=== PATIENT | female | born 1940 | race Two or more races ===

== ENCOUNTER 2017-10-26 13:44 | Emergency (ER) | payer OTHER ==
[~2017-10-26] VITALS: Ht 157.5 cm; Wt 49.9 kg
[~2017-10-26 13:44] MED LIST: AVALIDE 150-12.1 TA1 PO; AVAPRO75 MG PO; CATAFLAM50 MG PO; CRESTOR5 MG PO; KEFLEX500 MG PO; NORTUSS-EX LIQ118 ML PO; PRELONE15 MG/5 ML PO; ZITHROMAX500 MG PO; ZYNCOF 20-400120 ML PO
[2017-10-26] MEDS ORDERED: ARICEPT10 MG (14:21)
[2017-10-26] MEDS ORDERED: LASIX20 MG (14:21)
[2017-10-26] MEDS ORDERED: LIPITOR40 MG (14:21)
== END 2017-10-26 17:57 | disposition home or self-care (01) ==
LOC: ER 13:44
DX: B34.9 Viral infection, unspecified (principal); J11.1 Influenza due to unidentified influenza virus with other respiratory manifestations

== ENCOUNTER 2019-01-24 09:16 | Emergency (ER) | payer OTHER ==
[~2019-01-24] VITALS: Ht 162.6 cm; Wt 52.2 kg
[~2019-01-24 09:16] MED LIST changes: +ARICEPT10 MG; +LASIX20 MG; +LIPITOR40 MG
[2019-01-24] MEDS ORDERED: AMLODIPINE BESI25 GM (09:25)
== END 2019-01-24 11:15 | disposition home or self-care (01) ==
LOC: ER 09:16
DX: R00.2 Palpitations (principal)

== ENCOUNTER 2022-02-13 15:35 | Emergency (ER) | payer OTHER ==
[~2022-02-13] VITALS: Ht 154.9 cm; Wt 47.6 kg
[~2022-02-13 15:35] MED LIST changes: +AMLODIPINE BESI25 GM
[2022-02-13] MEDS ORDERED: ATACAND32 MG PO (16:26)
[2022-02-13] MEDS ORDERED: ARICEPT10 MG PO (16:27)
[2022-02-13] MEDS ORDERED: LASIX20 MG PO (16:27)
[2022-02-13] MEDS ORDERED: NORVASC5 MG PO (16:28)
[2022-02-13] MEDS ORDERED: ALLERGY RELIEF10 M4 PO (16:29)
[2022-02-13] MEDS ORDERED: MORGIDOX100 MG PO (16:53)
== END 2022-02-13 17:09 | disposition home or self-care (01) ==
LOC: ER 15:35
DX: L03.032 Cellulitis of left toe (principal); I10 Essential (primary) hypertension

== ENCOUNTER 2024-04-19 10:29 | Inpatient (IN) | payer OTHER ==
[~2024-04-19] VITALS: Ht 157.5 cm; Wt 49.9 kg
[~2024-04-19 10:29] MED LIST changes: +ALLERGY RELIEF10 M4 PO; +ARICEPT10 MG PO; +ATACAND32 MG PO; +LASIX20 MG PO; +MORGIDOX100 MG PO; +NORVASC5 MG PO
[2024-04-19] MEDS ORDERED: TRAZODONE HCL50 MG PO (10:46)
--- NOTE | 2024-04-19 10:47 | NUR ---
SE RECIBE PTE FEMENINA DE 83 YRS AMBULANCIA POR ANOREXIA, PTE LLEGA DESDE EL HOGAR CON REFERIDO A EL MICHEAL EVANS. SE LE BLAINE S/V Y SE UBICA EN PIPER . SE MAMTIENENE EN ESPERA DE SER REVALIADA POR EL MARIAM EVANS
[2024-04-19] MEDS ORDERED: SODIUM CHLORIDE 0.45 % 1,000 ML IV SCH (12:00)
[2024-04-19] MEDS ORDERED: METOPROLOL SUCCINATE 25 MG TAB.SR.24H PO SCH (12:17)
[2024-04-19] MEDS ORDERED: CANDESARTAN CILEXETIL 8 MG TAB PO SCH (12:17)
[2024-04-19 15:32] LABS: CHOL HDL RATIO 2.9 (0-5.0)
[2024-04-19 15:51] VITALS: BP 158/86; O2SAT 98
[2024-04-19 22:56] VITALS: BP 179/91; O2SAT 98
[2024-04-20 02:51] VITALS: BP 152/68; O2SAT 96
[2024-04-20 09:41] VITALS: BP 189/18; O2SAT 98
[2024-04-20 09:54] LABS: HEMATOCRIT 33.8 % (36.0-45.00); HEMOGLOBIN 11.4 g/dL (12.0-15.00); MEAN CORPUSCULAR HEMOGLOBIN 28.8 pg (27.00-32.0); MEAN CORPUSCULAR HGB CONC 33.9 g/dl (32.0-36.0); PLATELET COUNT 246 K/uL (150-450); RED BLOOD COUNT 3.98 M/uL (4.00-6.00); RED CELL DISTRIBUTION WIDTH 15.2 % (11.5-14.5)
[2024-04-20 10:06] LABS: ERYTHROCYTE SEDIMENTATION RATE 78 mm/hr
[2024-04-20 10:16] LABS: INR 1.07; PARTIAL THROMBOPLASTIN TIME 32.5 SECONDS (22.0-34.0); PROTHROMBIN TIME 11.6 SECONDS (9.0-11.5)
[2024-04-20 11:11] LABS: ALBUMIN 2.9 gm/dL (3.4-5.0); BILIRUBIN TOTAL 0.81 mg/dL (0.3-1.2); CALCIUM 9.1 mg/dL (8.5-10.1); CREATININE SERUM 0.53 mg/dL (0.55-1.02); GFR 109.64; GLOBULINA 3.6 G/DL (2.4-3.5); PHOSPHOROUS 3.8 mg/dL (2.5-4.9); POTASSIUM 3.96 mEq/L (3.5-5.1); TOTAL PROTEIN 6.5 gm/dL (6.4-8.2)
[2024-04-20 11:13] LABS: C-REACTIVE PROTEIN 2.1 MG/DL (0.00-0.29)
[2024-04-20 19:11] VITALS: BP 130/80; O2SAT 97
[2024-04-20] MEDS ORDERED: NIFEDIPINE 30 MG TAB.SA.OSM PO SCH (19:20)
[2024-04-21 02:05] VITALS: BP 156/88; O2SAT 95
[2024-04-21 08:57] VITALS: BP 190/78
[2024-04-21] MEDS ORDERED: NIFEDIPINE 30 MG TAB.SA.OSM PO SCH (10:00)
[2024-04-21 12:16] LABS: URINE APPEARANCE Cloudy; URINE BILIRRUBIN Negative (NEGATIVE); URINE BLOOD Small; URINE COLOR Dark Yellow; URINE GLUCOSE Negative (NEGATIVE); URINE LEUKOCYTE Moderate; URINE NITRATE Positive
[2024-04-21 12:20] LABS: URINE CAST 2.28 uL (0.0-1.40); URINE EPITHELIAL CELLS 17.7 uL (0.0-38.8); URINE RBC 8.3 uL (0.0-20.8); URINE WBC 1190.2 uL (0.0-23.2)
[2024-04-21 12:43] LABS: URINE BACTERIA > 9821.5 uL (0.0-1933); URINE KETONE 40 (NEGATIVE); URINE MUCUS MODERATE; URINE PROTEIN 100 (NEGATIVE)
[2024-04-21 14:58] LABS: CALCIUM 9.3 mg/dL (8.5-10.1); CHOL HDL RATIO 3.4 (0-5.0); CREATININE SERUM 0.55 mg/dL (0.55-1.02); GFR 105.05; POTASSIUM 3.98 mEq/L (3.5-5.1)
[2024-04-21] MEDS ORDERED: CEFTRIAXONE SODIUM 2,000 MG in DEXTROSE 5 % IN WATER 100 ML IV SCH (17:00)
[2024-04-21] MEDS ORDERED: AA 4.25%/CAL/LYTES/DEXT 5% 1,000 ML PERIFERAL SCH (17:00)
[2024-04-21] MEDS ORDERED: ENALAPRILAT DIHYDRATE 1.25 MG/ML VIAL IV PRN (18:00)
[2024-04-21 18:33] VITALS: BP 160/85; O2SAT 96
[2024-04-22 02:42] VITALS: BP 177/83; O2SAT 98
[2024-04-22] MEDS ORDERED: NIFEDIPINE 60 MG TAB.SA.OSM PO SCH (09:00)
[2024-04-22 09:46] VITALS: BP 180/90
[2024-04-22] MEDS ORDERED: MIDAZOLAM HCL 2 MG/2 ML VIAL IV STA (13:24)
[2024-04-22 15:57] LABS: CALCIUM 8.3 mg/dL (8.5-10.1); CHOL HDL RATIO 2.6 (0-5.0); CREATININE SERUM 0.4 mg/dL (0.55-1.02); GFR 151.7; POTASSIUM 3.85 mEq/L (3.5-5.1)
[2024-04-22 16:33] VITALS: BP 170/80; O2SAT 98
[2024-04-23 00:58] VITALS: BP 180/85; O2SAT 96
[2024-04-23 02:47] VITALS: BP 140/80; O2SAT 97
[2024-04-23 05:44] LABS: ALBUMIN 2.8 gm/dL (3.4-5.0); BILIRUBIN TOTAL 0.56 mg/dL (0.3-1.2); CALCIUM 8.9 mg/dL (8.5-10.1); CREATININE SERUM 0.38 mg/dL (0.55-1.02); GFR 160.95; GLOBULINA 3.9 G/DL (2.4-3.5); MAGNESIUM 2.1 mg/dL (1.8-2.4); PHOSPHOROUS 3.4 mg/dL (2.5-4.9); POTASSIUM 4.09 mEq/L (3.5-5.1); TOTAL PROTEIN 6.7 gm/dL (6.4-8.2)
[2024-04-23 05:49] LABS: C-REACTIVE PROTEIN 5.89 MG/DL (0.00-0.29)
[2024-04-23 07:03] LABS: HEMATOCRIT 32.3 % (36.0-45.00); HEMOGLOBIN 11.2 g/dL (12.0-15.00); MEAN CORPUSCULAR HEMOGLOBIN 29.1 pg (27.00-32.0); MEAN CORPUSCULAR HGB CONC 34.6 g/dl (32.0-36.0); PLATELET COUNT 255 K/uL (150-450); RED BLOOD COUNT 3.85 M/uL (4.00-6.00)
[2024-04-23 09:36] VITALS: BP 157/83; O2SAT 95
[2024-04-23 16:29] VITALS: BP 168/90
[2024-04-24 00:21] VITALS: BP 130/64; O2SAT 95
[2024-04-24 08:35] VITALS: BP 135/76; O2SAT 99
[2024-04-24 15:45] VITALS: BP 132/66; O2SAT 98
[2024-04-24] MEDS ORDERED: ALLERGY RELIEF10 M4 PO (16:31)
[2024-04-24] MEDS ORDERED: ARICEPT10 MG PO (16:31)
[2024-04-24] MEDS ORDERED: NORVASC5 MG PO (16:33)
[2024-04-24] MEDS ORDERED: ATACAND32 MG PO (16:34)
[2024-04-24] MEDS ORDERED: LIPITOR40 MG BUCAL (16:34)
[2024-04-24] MEDS ORDERED: TRAZODONE HCL50 MG PO (16:35)
[2024-04-24] MEDS ORDERED: LASIX20 MG PO (16:36)
== END 2024-04-24 19:17 | disposition home or self-care (01) | DRG 642 ==
LOC: ER 10:29 → SEC-K 13:24 → MEDJ 13:24
PROVIDERS: Internal Medicine Infectious Disease; ADMIT Internal Medicine; ATTEND Internal Medicine
PROC: 0DJ08ZZ Inspection of Upper Intestinal Tract, Via Natural or Artificial Opening Endoscopic (ICD-10-PCS; principal; 2024-04-22)
DX: E78.49 Other hyperlipidemia (principal); N39.0 Urinary tract infection, site not specified; R63.0 Anorexia; F03.90 Unspecified dementia, unspecified severity, without behavioral disturbance, psychotic disturbance, mood disturbance, and anxiety; I10 Essential (primary) hypertension; R13.19 Other dysphagia; Z74.01 Bed confinement status